=== PATIENT | female | born 1960 | race Caucasian/White ===

== ENCOUNTER → 2017-09-12 13:13 | Outpatient (CLI) | payer OTHER, SELFPAY ==
[2017-09-12 15:27] LABS: T4 Free Direct 1.09 ng/dL (0.76-1.46); Thyroid Stim Hormone (TSH) 0.07 uIU/mL (0.358-3.74)
[2017-09-18 11:28] LABS: Anti-Thyroglobulin AB 1.8 IU/mL (0.0-0.9); Thyroglobulin RIA < 2.0 ng/mL (.); Thyroid Peroxidase AB 47 IU/mL (0-34)
== END ==
PROVIDERS: Family Provider Family Medicine; PCP Family Medicine; Visit Provider Internal Medicine Endocrinology, Diabetes & Metabolism
DX: C73 Malignant neoplasm of thyroid gland (principal); E89.0 Postprocedural hypothyroidism; E55.9 Vitamin D deficiency, unspecified
CPT/HCPCS: 36415; 82306; 84432; 84439; 84443; 84481; 86376; 86800

== ENCOUNTER → 2017-09-19 14:10 | Outpatient (CLI) | payer OTHER, SELFPAY ==
[2017-09-26 10:22] LABS: HPV Reflexed? NOT INDICATED
== END ==
PROVIDERS: Family Provider Family Medicine; PCP Family Medicine; Visit Provider Family Medicine
DX: Z01.419 Encounter for gynecological examination (general) (routine) without abnormal findings (principal)
CPT/HCPCS: 88175; G0145

== ENCOUNTER → 2017-10-10 08:14 | Outpatient (CLI) | payer OTHER, SELFPAY ==
--- NOTE | 2017-10-10 08:16 | BI_ITS ---
MAMMOGRAPHY - BILATERAL SCREENING REASON FOR EXAM: Female, 57 years old. Routine annual screening examination. PERTINENT HISTORY: Mother with breast cancer. Aunt with breast cancer. Prior right stereotactic breast biopsy. TECHNIQUE: Digital bilateral breast all (3D mammographic acquisition) in the CC and MLO projections. 2-D mediolateral oblique (MLO) and craniocaudad (CC) views of both breasts were obtained. CAD: Full Field Digital Mammography with Computer Added Detection was performed. COMPARISON: Comparison is made with prior study dated September 20, 2016 and July 05, 2015. FINDINGS: Breast Composition: The breasts are heterogeneously dense, which may obscure small masses. There are no dominant masses or suspicious calcifications. No other significant abnormalities are identified. There has been no significant change since the prior study. BI/SCREENING MAMM (CAD), BILAT IMPRESSION: Stable bilateral screening mammogram. Yearly follow-up mammogram recommended. (A) ASSESSMENT CATEGORY: BIRADS Category 1: Negative. A letter regarding these results will be sent to the patient by the facility within 30 days. Approximately 10% of breast cancers are not detected by mammography. A normal mammogram should not delay biopsy of a clinically suspicious abnormality. [id number] Electronically Signed: Chriss Horan MD at 9:27 EDT Tel [phone], Service support ,
== END ==
PROVIDERS: Family Provider Family Medicine; PCP Family Medicine; Visit Provider Family Medicine
DX: Z12.31 Encounter for screening mammogram for malignant neoplasm of breast (principal)
CPT/HCPCS: 77063; 77067

== ENCOUNTER → 2018-01-08 08:35 | Outpatient (CLI) | payer OTHER, SELFPAY | PROVIDERS: Family Provider Family Medicine; PCP Family Medicine; Visit Provider Internal Medicine Endocrinology, Diabetes & Metabolism | DX: C73 Malignant neoplasm of thyroid gland (principal); R76.8 Other specified abnormal immunological findings in serum | CPT/HCPCS: 78018; A9528 ==

== ENCOUNTER → 2018-03-07 11:42 | Outpatient (CLI) | payer OTHER, SELFPAY ==
[2018-03-07 12:09] LABS: Absolute Lymphocyte Count 1.58 X10^3/ul (0.83-4.51); Absolute Neutrophil Count 3.8 X10^3/uL (2.0-7.7); Basophil# 0.05 X10^3/uL; Basophil% 0.8 % (0-1); Eosinophils% 3.3 % (0-5); Hematocrit 41.8 % (37-47); Hemoglobin 13.6 g/dl (12.0-15.0); Lymphocyte # 1.58 X10^3/ul (4.0); Lymphocyte % 26.4 % (19-41); Mean Corp Hgb Conc 32.5 g/gl (32-36); Mean Corpuscular Hgb 28.7 pg (27.0-32.0); Mean Corpuscular Volume 88.2 fL (81-99); Mean Platelet Vol. 9.7 fl (6.2-12.0); Monocyte# 0.31 X10^3/uL; Monocyte% 5.2 % (0-10); Neutrophil # 3.84 X10^3/uL (2.7-7.7); Neutrophil % 64.1 % (47-70); Platelet Count 303 K/mm3 (150-450); RBC Distribution Width CV 14.9 % (11.6-14.6); RBC Distribution Width SD 48.4 fl (35.1-43.9); Red Blood Count 4.74 M/mm3 (4.2-5.4)
[2018-03-07 12:10] LABS: POSITIVE COUNT NO; POSITIVE DIFFERENTIAL NO; POSITIVE MORPHOLOGY NO
[2018-03-07 12:52] LABS: AST(SGOT) 11 U/L (15-37); Alanine Aminotransfer ALT/SGPT 19 U/L (13-56); Albumin, Serum 3.7 g/dL (3.2-5.0); Alkaline Phosphatase 76 U/L (45-117); Anion Gap 8 (5-15); BUN 11 mg/dL (7-18); BUN/Creat Ratio 15.4 RATIO (10-20); Calcium,Total 8.5 mg/dL (8.5-10.1); Chloride 109 mmol/L (98-107); Creatinine, Serum 0.71 mg/dL (0.55-1.02); EST Glomerular Filtration Rate 89 mL/min (>60); Est Glom Filt Rate - Afr Amer 108 mL/min (>60); Free T3 3.2 pg/mL (2.18-3.98); Globulin 3.7 g/dL (2.2-4.2); Glucose 88 mg/dL (74-106); Potassium 4.1 mmol/L (3.5-5.1); Protein, Total 7.4 g/dL (6.4-8.2); Sodium Level 142 mmol/L (136-145); T4 Free Direct 1.16 ng/dL (0.76-1.46); Thyroid Stim Hormone (TSH) 0.29 uIU/mL (0.358-3.74)
[2018-03-11 12:22] LABS: Anti-Thyroglobulin AB < 1.0 IU/mL (0.0-0.9); Thyroglobulin, Serum Qt. < 0.1 ng/mL (1.5-38.5); Thyroid Peroxidase AB 38 IU/mL (0-34)
== END ==
PROVIDERS: Family Provider Family Medicine; PCP Family Medicine; Referring Provider Internal Medicine Endocrinology, Diabetes & Metabolism; Visit Provider Internal Medicine Endocrinology, Diabetes & Metabolism
DX: C73 Malignant neoplasm of thyroid gland (principal)
CPT/HCPCS: 36415; 80053; 84432; 84439; 84443; 84481; 85025; 86376; 86800

== ENCOUNTER → 2018-08-22 15:00 | Outpatient (CLI) | payer OTHER, SELFPAY ==
[2018-05-16 10:32] VITALS: BMI 24.1
[2018-08-22 17:00] LABS: Vitamin D,25 Hydroxy 48.2 ng/mL (29.95-100.01)
[2018-08-22 17:01] LABS: ALB/GLOB Ratio 1.1 RATIO (0.9-2.4); AST(SGOT) 16 U/L (15-37); Alanine Aminotransfer ALT/SGPT 27 U/L (13-56); Alkaline Phosphatase 74 U/L (45-117); Anion Gap 10 (5-15); BUN 14 mg/dL (7-18); BUN/Creat Ratio 18.6 RATIO (10-20); Calcium,Total 8.7 mg/dL (8.5-10.1); Chloride 107 mmol/L (98-107); Creatinine, Serum 0.75 mg/dL (0.55-1.02); EST Glomerular Filtration Rate 84 mL/min (>60); Est Glom Filt Rate - Afr Amer 101 mL/min (>60); Free T3 2.7 pg/mL (2.18-3.98); Globulin 3.5 g/dL (2.2-4.2); Glucose 92 mg/dL (74-106); Potassium 3.7 mmol/L (3.5-5.1); Protein, Total 7.5 g/dL (6.4-8.2); Sodium Level 143 mmol/L (136-145); T4 Free Direct 1.03 ng/dL (0.76-1.46); Thyroid Stim Hormone (TSH) 1.85 uIU/mL (0.358-3.74)
== END ==
PROVIDERS: Family Provider Family Medicine; PCP Family Medicine; Referring Provider Internal Medicine Endocrinology, Diabetes & Metabolism; Visit Provider Internal Medicine Endocrinology, Diabetes & Metabolism
DX: E89.0 Postprocedural hypothyroidism (principal); E55.9 Vitamin D deficiency, unspecified
CPT/HCPCS: 36415; 80053; 82306; 84439; 84443; 84481

== ENCOUNTER → 2018-10-16 10:18 | Outpatient (CLI) | payer OTHER, SELFPAY ==
[2018-10-16 09:27] VITALS: BMI 24.1
[2018-10-21 09:38] LABS: HPV Reflexed? NOT INDICATED
== END ==
PROVIDERS: Family Provider Family Medicine; PCP Family Medicine; Visit Provider Family Medicine
DX: Z01.419 Encounter for gynecological examination (general) (routine) without abnormal findings (principal)
CPT/HCPCS: 88175; G0145

== ENCOUNTER → 2018-11-04 15:18 | Outpatient (CLI) | payer OTHER, SELFPAY ==
[2018-10-16 09:27] VITALS: BMI 24.1
--- NOTE | 2018-11-04 15:21 | BI_ITS ---
MAMMOGRAPHY - BILATERAL SCREENING REASON FOR EXAM: Female, 58 years old. Routine annual screening examination. PERTINENT HISTORY: Mother with breast cancer. Aunt with breast cancer. Remote right stereotactic breast biopsy. TECHNIQUE: Digital bilateral breast kelvin (3D mammographic acquisition) in the CC and MLO projections. 2-D mediolateral oblique (MLO) and craniocaudad (CC) views of both breasts were obtained. CAD: Full Field Digital Mammography with Computer Added Detection was performed. COMPARISON: Comparison is made with prior examination October 10, 2017 and September 20, 2016. FINDINGS: Breast Composition: The breasts are heterogeneously dense, which may obscure small masses. There is a 1.4 cm well-defined nodular density in the slightly upper central portion of the left breast. Correlation with ultrasound is recommended. Small bilateral benign appearing axillary. No other significant abnormalities are identified. BI/SCREEN MAMM (CAD) W/KELVIN BILAT IMPRESSION: 1.4 cm well-defined nodular density in the slightly upper central portion of the left breast as described. Correlation with ultrasound is recommended. ASSESSMENT CATEGORY: BIRADS Category 0: Incomplete. Need additional imaging evaluation. A letter regarding these results will be sent to the patient by the facility within 30 days. Approximately 10% of breast cancers are not detected by mammography. A normal mammogram should not delay biopsy of a clinically suspicious abnormality. [id number] Electronically Signed: Chriss Horan, at 8:59 EDT , Service support ,
== END ==
PROVIDERS: PCP Family Medicine; Referring Provider Family Medicine; Visit Provider Family Medicine
DX: Z12.31 Encounter for screening mammogram for malignant neoplasm of breast (principal); Z80.3 Family history of malignant neoplasm of breast
CPT/HCPCS: 77063; 77067

== ENCOUNTER → 2018-11-06 09:31 | Outpatient (CLI) | payer OTHER, SELFPAY ==
[2018-10-16 09:27] VITALS: BMI 24.1
--- NOTE | 2018-11-06 09:34 | US_ITS ---
STUDY: ULTRASOUND BREAST - LEFT REASON FOR EXAM: Female, 58 years old. Abnormal screening mammogram. TECHNIQUE: Axial and longitudinal images of the LEFT breast were performed with a high resolution ultrasound transducer. COMPARISON: Comparison is made with prior mammogram dated November 04, 2018. FINDINGS: LEFT Breast: The mammographic abnormality corresponds to a 1.1 cm x 1.1 cm x 0.7 cm hypoechoic well-defined nodule at the 12:00 position of the breast at 1 cm from the nipple. This is not a typical cyst. A biopsy is recommended for further evaluation. US/Breast Limited Unilateral IMPRESSION: 1.1 cm x 1.1 cm x 0.7 cm well-defined hypoechoic nodule at the 12:00 position in the breast and one centimeters from nipple. A biopsy recommended. ASSESSMENT CATEGORY: BIRADS Category 4: Suspicious - Biopsy Should Be Considered. A letter regarding these results will be sent to the patient by the facility within 30 days. Electronically Signed: Chriss Horan, at 14:48 EDT , Service support ,
== END ==
PROVIDERS: Family Provider Family Medicine; PCP Family Medicine; Visit Provider Family Medicine
DX: R92.8 Other abnormal and inconclusive findings on diagnostic imaging of breast (principal)
CPT/HCPCS: 76642

== ENCOUNTER 2018-11-12 21:55 | Observation (INO) | payer OTHER, SELFPAY ==
[2018-11-12 13:18] VITALS: BMI 24.1
[2018-11-12 21:57] VITALS: BP 110/73; PULSE 89; RESP 18; TEMP 37; O2SAT 99; BMI 24.5
[2018-11-12 22:38] LABS: Red Blood Cells-Urine 0 SEEN /hpf (0-5)
--- NOTE | 2018-11-12 22:38 | ED.DCSUM_ITS ---
- ER Visit Summary Date of Service: 11/12/18 Chief Complaint: Abdominal pain History of Present Illness: The patient is a 58 F who presents the emergency department with a 1 day history of right lower quadrant pain. Patient states that she woke this morning with an ache in her side. The day went on she de veloped nausea and the pain seemed to more localized in the right lower quadrant and more painful. She notes pain with walking and with the car ride. She was actually at Dr. Del Real's office today for scheduling biopsy for an abnormal mammogram. She did not mention anything about this at that time. Patient notes she had a temperature of around 100 this evening. She has not thrown up. No ur inary symptoms or change in stool. Patient last had crackers around 1300 hrs. had a couple sips of tea this afternoon. Patient had a colonoscopy (Dr Keith) approximately 2 years ago that had a polyp that was benign. She has had a prior thyroidectomy (Dr Wilde). Physical Examination: Afebrile vital signs are stable Gen: Well-nourished well-developed Head: Normocephalic atraumatic Eyes: Perrl EOMI ENT: TMs clear no rhinorrhea moist mucous membranes Neck: Supple no lymphadenopathy no JVD nontender CVS: Regular rate rhythm no murmurs normal S1-S2 Respiratory: No distress clear to auscultation bilaterally chest nontender Abdomen: Soft there is tenderness and guarding in the right lower quadrant. No rebound tenderness. Back: Nontender Extremity: Nontender no edema Skin: Normal color no rash Neuro: alert orientated ?3 CN II-XII intact normal strength sensation reflexes gait cerebellar Psych: Normal affect normal mood Emergency Department Course and Treatment: CBC and abdominal labs were obtained. White count is elevated at 14.3. urinalysis obtained and negative. CT the abdomen pelvis was ordered. Patient received IV fluids morphine and Zofran. Care of the patient will be turned over to the night physician for check of CT and final disposition. Impression: 1. Acute abdominal pain This note was generated with [employer] dictation software. It may contain incorrect words, spelling, and punctuation that were not noted in review of the chart prior to signing ED Disposition - Plan for ED Patient: Referrals: Michael Baer, [Primary Care Provider] -
[2018-11-12 22:40] LABS: Color, Urine Yellow (Yellow); Glucose, Dipstick Normal (Normal); Ketone-Dipstick 5 mg/dl (Negative); Leukocyte Esterase-Dipstick Negative /ul (Negative); Nitrite-Dipstick Negative (Negative); Occult Blood-Urine Negative /ul (Negative); Protein-Dipstick Negative (Negative); Urine Bilirubin Dipstick Negative (Negative); Urine Clarity Clear (Clear); Urine Urobilinogen Normal (Normal)
[2018-11-12] MEDS: Ondansetron 4 MG/2 ML Vial IV (22:45)
[2018-11-12] MEDS: Morphine 4 MG/ML Syringe IV (22:45)
[2018-11-12] MEDS: 0.9% Normal Saline 1,000 ML 125 ML IV (22:46)
[2018-11-12 23:00] LABS: Bacteria 1+ /hpf (None Seen); Mucous, Urine RARE /hpf (<or=2+); Squamous Epithelial Cells - UA 5-10 SEEN /hpf (5-10); White Blood Cells 0-5 SEEN /hpf (0-5)
[2018-11-12 23:01] LABS: Absolute Lymphocyte Count 1.25 X10^3/ul (0.83-4.51); Absolute Neutrophil Count 12.3 X10^3/uL (2.0-7.7); Basophil# 0.03 X10^3/uL; Basophil% 0.2 % (0-1); Eosinophil# 0.02 X10^3/uL; Eosinophils% 0.1 % (0-5); Hematocrit 40.2 % (37-47); Hemoglobin 13.3 g/dl (12.0-15.0); Lymphocyte # 1.25 X10^3/ul (4.0); Lymphocyte % 8.7 % (19-41); Mean Corp Hgb Conc 33.1 g/gl (32-36); Mean Corpuscular Hgb 29.2 pg (27.0-32.0); Mean Corpuscular Volume 88.2 fL (81-99); Mean Platelet Vol. 9.4 fl (6.2-12.0); Monocyte# 0.64 X10^3/uL; Monocyte% 4.5 % (0-10); Neutrophil # 12.34 X10^3/uL (2.7-7.7); Neutrophil % 86.2 % (47-70); Platelet Count 290 K/mm3 (150-450); RBC Distribution Width CV 14.6 % (11.6-14.6); RBC Distribution Width SD 47.3 fl (35.1-43.9); Red Blood Count 4.56 M/mm3 (4.2-5.4); White Blood Count 14.3 K/mm3 (4.4-11.0)
[2018-11-12 23:02] LABS: POSITIVE COUNT NO; POSITIVE DIFFERENTIAL NO; POSITIVE MORPHOLOGY NO
[2018-11-12 23:18] LABS: AST(SGOT) 16 U/L (15-37); Alanine Aminotransfer ALT/SGPT 16 U/L (13-56); Albumin, Serum 3.8 g/dL (3.2-5.0); Alkaline Phosphatase 73 U/L (45-117); Anion Gap 6 (5-15); BUN 11 mg/dL (7-18); BUN/Creat Ratio 15.1 RATIO (10-20); Bilirubin, Direct 0.09 mg/dL (0.00-0.30); Calcium,Total 8.7 mg/dL (8.5-10.1); Chloride 109 mmol/L (98-107); Creatinine, Serum 0.73 mg/dL (0.55-1.02); EST Glomerular Filtration Rate 87 mL/min (>60); Est Glom Filt Rate - Afr Amer 105 mL/min (>60); Estimated Creatinine Clearance 74.67 ml/min; Globulin 3.7 g/dL (2.2-4.2); Glucose 109 mg/dL (74-106); Lipase 40 U/L (73-393); Potassium 4.5 mmol/L (3.5-5.1); Protein, Total 7.5 g/dL (6.4-8.2); Sodium Level 137 mmol/L (136-145)
[2018-11-13] VITALS (9 sets, daily range): BP systolic 104–128; BP diastolic 55–77; PULSE 74–94; RESP 14–18; TEMP 36.4–37.2; O2SAT 94–97; BMI 24.5
--- NOTE | 2018-11-13 01:53 | PCM.HP.STD ---
Problem List (1) Acute appendicitis Status: Acute Qualifiers: Acute appendicitis type: with localized peritonitis Appendicitis perforation presence: without perforation Appendicitis abscess presence: without abscess History of Present Illness Date of Admission: 11/13/18 The patient is a 58 year old F who presents with a 1 day history of right lower quadrant abdominal pain. The patient had pain starting in the right mid abdomen lower quadrant at approximately 9:00 this morning. It is of note that for a separate issue she was seen in the office today by Dr. Calhoun but despite the fact that she was having abdominal pain at that time she made no comment of it. Because of again worsened she presented to the emergency room at 10:00 last night. I was notified at approximately 130 this morning. White count is elevated at 14,000. CT scan demonstrates a severe acute appendicitis with local inflammatory changes. She has not had any previous abdominal surgery. I have assisted her in the past with thyroid surgery for benign disease. Past Medical History Past Medical History (Chronic Problems): Chronic Problems (Last Reviewed 11/12/18 @ 13:16 by Jerica Calvin) Polyp of cervix (Chronic) Hypothyroidism (Chronic) Medical History: Medical History (Last Reviewed 11/12/18 @ 13:16 by Jerica Calvin) Hypothyroidism (Chronic) E03.9 History of thyroid cancer (Acute) Z85.850 Allergies adhesive Allergy (Verified 11/12/18 21:56) Rash FROM BANDAID Home Medications: Ambulatory Orders Medication Instructions Recorded levothyroxine 100 mcg capsule 100 mcg PO SUTUTHFRSA 09/19/17 liothyronine 5 mcg tablet 5 mcg PO DAILY 10/16/18 Surgical History: Surgical History (Last Updated 11/12/18 @ 13:16 by Jerica Calvni) History of colonoscopy Onset Date: ~2016 Z98.890 History of right breast biopsy Z98.890 History of thyroidectomy E89.0 2017 Status post biopsy of thyroid gland Z98.890 Smoking Status: Never smoker Review of Systems Constitutional: Reports: Anorexia, Fever HEENT: Denies: Difficulty Swallowing Cardiovascular: Denies: Chest Pain Respiratory: Denies: Cough Gastrointestinal: Reports: Abdominal Pain, Nausea Endocrine: Denies: Change in Body Habitus VTE Information - Inpt Only VTE Present on Admission: No Patient Problems: Active and Suspected Problems (Last Reviewed 11/12/18 @ 13:16 by Jerica Calvin) Acute appendicitis (Acute) - Physical Exam General: Alert, Oriented x3, Cooperative, No apparent distress HEENT: Atraumatic Oral: Moist Mucosa Neck: Supple Lungs: Clear to auscultation, Normal air movement Cardiovascular: Regular rate, Regular Rhythm Abdomen: Soft, - - Tender right lower quadrant with diffuse guarding and diffuse fullness. Very infrequent bowel sounds Extremities: No Calf Tenderness Skin: No rashes Psych/Mental Status: Appropriate Vital Signs Temp Pulse Resp BP Pulse Ox 98.5 F 81 17 124/70 H 97 11/13/18 01:31 11/13/18 01:31 11/13/18 01:31 11/13/18 01:31 11/13/18 01:31 Oxygen Delivery Method Room Air Weight: 147 lb 0.773 oz Body Mass Index (BMI) 24.5 Laboratory Tests Past 24 Hrs 11/12/18 11/12/18 11/12/18 22:15 22:49 22:49 WBC 14.3 H RBC 4.56 Hgb 13.3 Hct 40.2 MCV 88.2 MCH 29.2 MCHC 33.1 RDW 14.6 RDW Differential 47.3 H Plt Count 290 MPV 9.4 Immature Gran % (Auto) 0.300 Neut % (Auto) 86.2 H Lymph % (Auto) 8.7 L [place] % (Auto) 4.5 Eos % (Auto) 0.1 Baso % (Auto) 0.2 Absolute Neuts (auto) 12.3 H Absolute Lymphs (auto) 1.25 Total Counted Not Reportable Sodium 137 Potassium 4.5 Chloride 109 H Carbon Dioxide 22.0 Anion Gap 6 BUN 11 Creatinine 0.73 Estim Creat Clear Calc 74.67 Est GFR (MDRD) Af Amer 105 Est GFR (MDRD) Non-Af 87 BUN/Creatinine Ratio 15.1 Glucose 109 H Calcium 8.7 Total Bilirubin 0.50 Direct Bilirubin 0.09 AST 16 ALT 16 Alkaline Phosphatase 73 Total Protein 7.5 Albumin 3.8 Globulin 3.7 Lipase 40 L Urine Color Yellow Urine Clarity Clear Urine pH 8.0 Ur Specific [place] 1.010 Urine Protein Negative Urine Glucose (UA) Normal Urine Ketones 5 H Urine Occult Blood Negative Urine Nitrite Negative Urine Bilirubin Negative Urine Urobilinogen Normal Ur Leukocyte Esterase Negative Urine RBC 0 SEEN Urine WBC 0-5 SEEN Ur Squamous Epith Cells 5-10 SEEN Urine Bacteria 1+ Urine Mucus RARE Assessment/Plan All Active Problems (Last Reviewed 11/12/18 @ 13:16 by Jerica Calvin) Acute appendicitis (Acute) History of thyroid cancer (Acute) Screening for colon cancer (Acute) I have personally reviewed her CT scan. Findings are consistent with acute focal localized appendicitis with significant periappendiceal inflammatory changes. I recommend a laparoscopic appendectomy in detail I have discussed the technique, benefits, risks, alternatives. I have recommend initiating IV antibiotics and proceeding with definitive surgery. She has had an opportunity to ask and have questions answered. We will proceed at this time because of the severity of the process. Rajeev Wilde M.D., F.A.C.S.
--- NOTE | 2018-11-13 01:58 | DCINST_ITS ---
<Rajeev Wilde - Last Filed: 11/13/18 01:58> Discharge Diet: Light diet - advance as tolerated - if you have questions about your diet instructions, please talk to you doctor. Discharge Activity: May Not Drive - for 3-5 days or while taking narcotic pain medicine. May shower in (days): 1 Lifting Restrictions: 10 pounds Call your doctor if your incision/area has: Continuous Slow Oozing, Sudden Increased Bleeding, Increased Pain/ Swelling, Increased Redness, Foul Smelling Discharge Call your doctor if you observe: Fever of 101 or Higher Suture Line Care: Avoid Pulling/Pushing, Avoid Pinching/Bending Additional Dressing/Incision Instructions:: Change or remove dressing in 4 days. Leave steri-strips in place for 1 week. Allergies/Adverse Reactions: Allergies adhesive Allergy (Verified 11/12/18 21:56) Rash FROM BANDAID Medications to take at Discharge levothyroxine 100 mcg capsule 100 mcg PO SUTUTHFRSA 09/19/17 liothyronine 5 mcg tablet 5 mcg PO DAILY 10/16/18 Hydrocodone Bitart/Apap 5-325 [[place] 5MG-325MG] 1 tab PO Q6H PRN PRN 2 Days #4 tab 11/13/18 The following prescriptions were given: Hydrocodone Bitart/Apap 5-325 [[place] 5MG-325MG] 1 tab PO Q6H PRN PRN 2 Days #4 tab PRN Reason: Pain Transmission Status: Received by [id number] Primary Care Physician: Michael Baer DO [Primary Care Provider] - Test Results: Test results from this visit will be discussed in further detail at your follow- up appointment, if applicable. Please Follow Up With: Rajeev Wilde MD - [phone] When: Call to make an appointment to be seen in about 10 days. <Mirta Chew - Last Filed: 11/13/18 14:30> Test Results: Test results from this visit will be discussed in further detail at your follow- up appointment, if applicable. Proposed Discharge Date: 11/13/18
--- NOTE | 2018-11-13 02:30 | APP_PTH ---
PATIENT: LUCÍA AGUERO LOC: MS3 U#:[id number] AGE/SX: 58/F ROOM: MS321 RE11/13/[address]: Dr. Rajeev Wilde MD : 1960 BED: 1 DIS: 11/13/2018 SPEC #: [id number] RECD: 11/13/18 14:32 STATUS: MIKEL REEj #: [id number] SHERYL: 11/13/18 02:[address]: Rajeev Wilde DEPT: SURGICAL PATHOLOGY RECD BY: Sameera Roper ENTERED: 11/14/18 08:39 SP TYPE: APPENDIX OTHR DR: Dr. Michael Baer, DO Tissues: Appendix, NOS Procedures: Surgery Specimen Level III HEADER OPERATION: Laparoscopic appendectomy PRE-OP DIAGNOSIS: Acute appendicitis TISSUE SUBMITTED: Appendix MICROSCOPIC DIAGNOSIS Appendix: Acute appendicitis and periappendicitis. DILIP:wily 11/17/18 MICROSCOPIC DESCRIPTION Slides are reviewed. GROSS DESCRIPTION Received in fixative is one container labeled with the patient's name and designated appendix. The specimen consists of a vermiform appendix measuring 9 cm in length and varying in diameter from 1 to 1.8 cm. The serosal surface of the appendix is kaur-brown with extensive fibrous adhesion. Grossly, no perforation is identified. The appendix is serially cross-sectioned to reveal a patent lumen containing soft brown stool. The appendiceal wall is slightly thickened but uniform (0.25 cm). Header Machine Operator sections are submitted in one cassette. / CE:wily 11/14/18 TC:2 CPT: 59692
[2018-11-13] MEDS: Bupivacaine Mpf 0.5% 30 ML VIAL (03:06)
--- NOTE | 2018-11-13 04:05 | OP.PCM_ITS ---
Problem List (1) Acute appendicitis Status: Acute Qualifiers: Acute appendicitis type: with localized peritonitis Appendicitis perforation presence: without perforation Appendicitis abscess presence: without abscess Report of Operation Date of Procedure: 11/13/18 Pre-Operative Diagnosis: Acute appendicitis with localized peritonitis Post-Operative Diagnosis: Same Surgery/Procedure Performed:: Laparoscopic appendectomy Description of Surgical Findings:: Timeout and informed consent was obtained. 58-year-old female was taken the operating room. She received initiation of Zosyn as an IV antibiotic via the emergency room. She underwent general endotracheal intubation and anesthesia. The abdomen was sterilely prepped and draped. 0.5% Marcaine was used as a local anesthetic. Throughout the procedure a total of 30 cc was used. Skin sites were anesthetized. A vertical infraumbilical incision was created holding sutures of 0 Vicryl placed varies needle inserted and the abdomen was insufflated with CO2 to a pressure of 10 mmHg pressure. Vanesa trocar inserted. Terminal endoscope inserted. No evidence of acute trocar problems. 5-minute trochars were placed in the suprapubic and low mid abdomen. Inspection revealed the appendix was not immediately visible. On careful blunt dissection was apparent that the appendix was immediately adherent to the ascending colon and adherent to the right pelvic sidewall. At this point tedious dissection was performed as severe acute localized inflammation was encountered. Using blunt dissection aqua dissection aspiration finally was able to clearly identify the tip the appendix. Retroperitoneum had to be incised to elevated. Was able to get around the base the appendix placed a 45 mm standard height stapler and secured the appendix there. I then used a vascular stapler to secure the majority of the mesoappendix. I further used Hem-o-rosemary clips to secure hemostasis. The appendix was eventually released in place a retrieval bag. Because the patient is a Sikhism very careful inspection of the resection area was performed as there was significant focal acute inflammatory changes. Additional hemo-lock clips were placed as appropriate. The right pericecal area was irrigated and aspirated free. There was no evidence of any leakage. Hemostasis was completely achieved. The appendix had been placed in a retrieval bag was exited at the umbilicus. The remaining trochars removed under visualization. The abdomen was allowed to deflate of the CO2. The fascia at the umbilicus was approximated with interrupted 0 Vicryl [id number] suture. Skin edges were approximated with interrupted 4-0 Monocryl subdermal stitches. Steri-Strips Telfa and OpSite dressings applied. Sponge and instrument and needle counts were reported to the surgeon to be correct. Blood loss was minimal. She was taken to the recovery area in satisfactory condition. Specimen appendix. Drains none. Blood loss minimal. Because the patient is a Sikhism and there is risk of bleeding I will not initiate pharmacologic DVT prophylaxis but will utilize early mobilization and sequential venous compression devices. Rajeev Wilde M.D., F.A.C.S. Type of Anesthesia:: General Anesthesiologist: Danny Eller
--- NOTE | 2018-11-13 06:10 | PN.SURG_ITS ---
Patient Problems: Active and Suspected Problems (Last Reviewed 11/12/18 @ 13:16 by Jerica Calvin) Acute appendicitis (Acute) Subjective: Pt feeling OK. Just awake from surgery - Physical Exam Abdomen: Soft, Bowel Sounds Not Present Vital Signs Temp Pulse Resp BP Pulse Ox 97.6 F L 76 16 113/55 L 96 11/13/18 05:01 11/13/18 05:01 11/13/18 05:01 11/13/18 05:01 11/13/18 05:01 Oxygen Delivery Method Room Air Weight: 147 lb 0.773 oz Body Mass Index (BMI) 24.5 Intake and Output for Last 24 Hours 11/11/18 11/12/18 11/13/18 23:59 23:59 23:59 Intake Total 1899 Balance 1899 Laboratory Tests Past 24 Hrs 11/12/18 11/12/18 11/12/18 22:15 22:49 22:49 WBC 14.3 H RBC 4.56 Hgb 13.3 Hct 40.2 MCV 88.2 MCH 29.2 MCHC 33.1 RDW 14.6 RDW Differential 47.3 H Plt Count 290 MPV 9.4 Immature Gran % (Auto) 0.300 Neut % (Auto) 86.2 H Lymph % (Auto) 8.7 L [place] % (Auto) 4.5 Eos % (Auto) 0.1 Baso % (Auto) 0.2 Absolute Neuts (auto) 12.3 H Absolute Lymphs (auto) 1.25 Total Counted Not Reportable Sodium 137 Potassium 4.5 Chloride 109 H Carbon Dioxide 22.0 Anion Gap 6 BUN 11 Creatinine 0.73 Estim Creat Clear Calc 74.67 Est GFR (MDRD) Af Amer 105 Est GFR (MDRD) Non-Af 87 BUN/Creatinine Ratio 15.1 Glucose 109 H Calcium 8.7 Total Bilirubin 0.50 Direct Bilirubin 0.09 AST 16 ALT 16 Alkaline Phosphatase 73 Total Protein 7.5 Albumin 3.8 Globulin 3.7 Lipase 40 L Urine Color Yellow Urine Clarity Clear Urine pH 8.0 Ur Specific [place] 1.010 Urine Protein Negative Urine Glucose (UA) Normal Urine Ketones 5 H Urine Occult Blood Negative Urine Nitrite Negative Urine Bilirubin Negative Urine Urobilinogen Normal Ur Leukocyte Esterase Negative Urine RBC 0 SEEN Urine WBC 0-5 SEEN Ur Squamous Epith Cells 5-10 SEEN Urine Bacteria 1+ Urine Mucus RARE Medical Necessity - Tobacco Use Smoking Status: Never smoker Assessment/Plan All Active Problems (Last Reviewed 11/12/18 @ 13:16 by Jerica Calvin) Acute appendicitis (Acute) History of thyroid cancer (Acute) Screening for colon cancer (Acute) Mobilize pt Re assess later today
[2018-11-13] MEDS: Lactated Ringers 1,000 ML 30 ML IV (07:17)
[2018-11-13] MEDS: Morphine 2 MG/ML Syringe IV (07:18)
[2018-11-13] MEDS: 0.9% NaCl Peripheral Flush Adult/Peds IV (07:23)
[2018-11-13] MEDS: Levothyroxine 100 MCG Tablet PO (07:48)
[2018-11-13] MEDS: HYDROcodone Bitartrate/Apap 5/325 Tablet PO (11:23)
--- NOTE | 2018-11-13 22:16 | CT_ITS ---
HISTORY: RLQ PAIN WITH FEVER, NAUSEA, CHILLS SINCE THIS AM, HX THYROID CA IN PAST EXAMINATION: CT Abdomen And Pelvis W/ Contrast TECHNIQUE: Helically acquired images were obtained of the abdomen and pelvis following IV contrast. A radiation dose optimization technique was used for this scan. IV Contrast dosage and agent: 100ML Isovue 370 Oral contrast: Yes COMPARISON: 02/01/2017 FINDINGS: Appendix: Right lower quadrant appendix which is dilated measuring 11 mm in diameter with enhancement of its wall and accompanied by inflammatory edema and small fluid component within the right paracolic gutter. Appendicitis clearly present with possible early rupture. No abscess or periappendiceal soft tissue gas seen. Lower thorax: Bibasilar mild dependent atelectasis. No pleural effusion. Prominent gallbladder distention without gallstones or pericholecystic inflammatory change. No biliary dilatation. Liver is normal in size. The subdiaphragmatic posterior segment of the right hepatic lobe shows a stable circumscribed 2.1 cm cyst. No suspicious hepatic lesion. Normal spleen and pancreas. Both kidneys are normal in position. Left renal developmental UPJ narrowing with mild hydronephrosis and prominent distention of the left renal pelvis. No postobstructive renal atrophy is seen. The pattern appears stable. The left ureter is nondilated and fills with contrast on delayed imaging. The right kidney shows additional mild pelviectasis without bruno hydronephrosis. The right ureter fills with contrast on delayed imaging. No pyelonephritis or suspicious renal lesion. Adrenal glands are not enlarged. Abdominal aorta is normal in caliber. Patent IVC. No retroperitoneal lymph node enlargement. GI tract: Acute appendicitis, as above. No bowel obstruction. No pneumoperitoneum. Pelvis: Enlarged, fibroid uterus. Left ovary is not enlarged and shows numerous coarse calcifications of varying size. Possible ovarian dermoid. Tiny free fluid within the posterior cul-de-sac on the right. Normal urinary bladder. Bones: No acute osseous abnormality. CT/Abdomen/Pelvis WITH Contrast IMPRESSION: 1. Acute appendicitis with possible early appendiceal rupture. Small fluid component within the right paracolic gutter. No abscess or pneumoperitoneum. No bowel obstruction. 2. 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 Additional mild pelviectasis of the right kidney without bruno hydronephrosis on the right. If needed, further assessment of renal function could be obtained with diuretic nuclear renal scan. 3. Enlarged, fibroid uterus. 4. Left ovarian coarse calcifications, possible small dermoid tumor. Individualized dose optimization techniques were used for this CT. at 0201 Reported and signed by: Nikita Light MD N.B. : The above information has been verbally conveyed by Nikita Light to Dr. Suni MD, on 11/13/2018 02:35:56 (ET). Electronically Signed: Nikita Light, at 2:00 EDT Tel , Service support ,
== END 2018-11-13 14:50 | disposition home or self-care (01) ==
LOC: ED 22:24 → SDC 11-13 02:36 → MS3 11-13 02:37 → SDC 11-13 04:21 → MS3 11-13 04:21
PROVIDERS: Admitting Provider Surgery; Emergency Provider Emergency Medicine; Family Provider Family Medicine; PCP Family Medicine; Referring Provider Surgery; Visit Provider Surgery
PROC: 0DTJ4ZZ Resection of Appendix, Percutaneous Endoscopic Approach (ICD-10-PCS; CPT 44970; principal; 2018-11-13 02:30)
DX: K35.80 Unspecified acute appendicitis (principal); E03.9 Hypothyroidism, unspecified; Z79.899 Other long term (current) drug therapy; Z85.850 Personal history of malignant neoplasm of thyroid
CPT/HCPCS: 44970; 74177; 80048; 80076; 81001; 83690; 85025; 88304; 96361; 96365; 96375; 96376; 99218; 99285; J7030; J7120; Q9967; A4216; G0378; J2405

== ENCOUNTER → 2018-11-14 16:21 | Outpatient (CLI) | payer OTHER, SELFPAY ==
--- NOTE | 2018-11-14 | BRBX_PTH ---
PATIENT: LUCÍA AGUERO LOC: [facility] U#:[id number] AGE/SX: 64/F ROOM: RE11/14/[address]: Dr. Nani Calhoun MD : 1960 BED: DIS: SPEC #: [id number] RECD: 11/14/18 16:17 STATUS: MIKEL REEj #: [id number] SHERYL: 11/14/18 00:[address]: Nani Calhoun DEPT: SURGICAL PATHOLOGY RECD BY: Issac Boyce ENTERED: 11/17/18 10:55 SP TYPE: BREAST BX OTHR DR: Dr. Michael Baer DO Tissues: Left breast, NOS Procedures: Surgery Specimen Level IV HEADER OPERATION: Left breast biopsy PRE-OP DIAGNOSIS: Left breast mass TISSUE SUBMITTED: Left breast tissue ISCHEMIC TIME: 1 minute FIXATION TIME: 77 hours MICROSCOPIC DIAGNOSIS Left breast tissue, core biopsy: Fragments of benign breast tissue with extensive dense fibrosis. Focal microcalcifications. Negative for atypia or malignancy. DILIP:wily 11/18/18 COMMENT Correlation with clinical, radiologic findings and appropriate follow up are necessary. MICROSCOPIC DESCRIPTION Slides are reviewed. GROSS DESCRIPTION Received in fixative is one container labeled with the patient's name and designated left breast. The specimen consists of multiple elongated fragments of kaur-yellow fibroadipose tissue that in aggregate measure 2.5 x 0.5 x 0.1 cm. The entire specimen is submitted in one cassette. / DILIP:wily 11/17/18 TC:5 CPT: 60755
[2018-11-14 14:13] VITALS: BMI 24.5
== END ==
PROVIDERS: Family Provider Family Medicine; PCP Family Medicine; Referring Provider Surgery; Visit Provider Surgery
DX: N63.20 Unspecified lump in the left breast, unspecified quadrant (principal)
CPT/HCPCS: 88305

== ENCOUNTER → 2019-02-18 12:45 | Outpatient (CLI) | payer OTHER, SELFPAY ==
[2018-11-17 13:01] VITALS: BMI 24.5
--- NOTE | 2019-02-18 12:47 | US_ITS ---
STUDY: ULTRASOUND BREAST - LEFT REASON FOR EXAM: Female, 58 years old. Follow-up for prior biopsy of the left breast nodule. TECHNIQUE: Axial and longitudinal images of the LEFT breast were performed with a high resolution ultrasound transducer. COMPARISON: Comparison is made with prior study dated November 06, 2018. FINDINGS: LEFT Breast: Once again, there is a 1.1 cm x 1.2 cm x 0.7 cm hypoechoic solid nodule at the 12:00 position the breast at 1 cm from nipple. This was previously biopsied. A clip is seen within it. US/Breast Limited Unilateral IMPRESSION: Stable appearance of the hypoechoic solid nodule at the 12:00 position breast at 1 cm from nipple. A tissue clip marker is seen within. ASSESSMENT CATEGORY: BIRADS Category 2: Benign. A letter regarding these results will be sent to the patient by the facility within 30 days. Electronically Signed: Chriss Horan, at 10:59 EDT , Service support ,
== END ==
PROVIDERS: Family Provider Family Medicine; PCP Family Medicine; Referring Provider Surgery; Visit Provider Surgery
DX: N60.32 Fibrosclerosis of left breast (principal)
CPT/HCPCS: 76642

== ENCOUNTER → 2019-03-12 12:50 | Outpatient (CLI) | payer OTHER, SELFPAY ==
[2019-02-20 08:36] VITALS: BMI 24.5
[2019-03-12 14:07] LABS: Vitamin D,25 Hydroxy 39.9 ng/mL (29.95-100.01)
[2019-03-12 14:08] LABS: AST(SGOT) 15 U/L (15-37); Alanine Aminotransfer ALT/SGPT 21 U/L (13-56); Albumin, Serum 4.1 g/dL (3.2-5.0); Alkaline Phosphatase 77 U/L (45-117); Anion Gap 7 (5-15); BUN 6 mg/dL (7-18); BUN/Creat Ratio 8.5 RATIO (10-20); Chloride 106 mmol/L (98-107); EST Glomerular Filtration Rate 90 mL/min (>60); Est Glom Filt Rate - Afr Amer 109 mL/min (>60); Free T3 2.8 pg/mL (2.18-3.98); Glucose 87 mg/dL (74-106); Potassium 3.6 mmol/L (3.5-5.1); Protein, Total 8.1 g/dL (6.4-8.2); Sodium Level 141 mmol/L (136-145); T4 Free Direct 0.86 ng/dL (0.76-1.46); Thyroid Stim Hormone (TSH) 9.37 uIU/mL (0.358-3.74)
[2019-03-16 13:23] LABS: Anti-Thyroglobulin AB < 1.0 IU/mL (0.0-0.9); Thyroglobulin, Serum Qt. < 0.1 ng/mL (1.5-38.5); Thyroid Peroxidase AB 32 IU/mL (0-34)
== END ==
PROVIDERS: Family Provider Family Medicine; PCP Family Medicine; Referring Provider Internal Medicine Endocrinology, Diabetes & Metabolism; Visit Provider Internal Medicine Endocrinology, Diabetes & Metabolism
DX: C73 Malignant neoplasm of thyroid gland (principal); E89.0 Postprocedural hypothyroidism; E55.9 Vitamin D deficiency, unspecified
CPT/HCPCS: 36415; 80053; 82306; 84432; 84439; 84443; 84481; 86376; 86800

== ENCOUNTER → 2019-06-02 11:49 | Outpatient (CLI) | payer OTHER, SELFPAY ==
[2019-02-20 08:36] VITALS: BMI 24.5
[2019-06-02 13:53] LABS: Free T3 2.7 pg/mL (2.18-3.98); Thyroid Stim Hormone (TSH) 9.65 uIU/mL (0.358-3.74)
[2019-06-03 20:56] LABS: t-Transglutaminase IgA >100 U/mL (0-3)
== END ==
PROVIDERS: Family Provider Family Medicine; PCP Family Medicine; Referring Provider Internal Medicine Endocrinology, Diabetes & Metabolism; Visit Provider Internal Medicine Endocrinology, Diabetes & Metabolism
DX: E55.9 Vitamin D deficiency, unspecified (principal); E89.0 Postprocedural hypothyroidism
CPT/HCPCS: 36415; 83516; 84443; 84481

== ENCOUNTER → 2019-11-05 11:12 | Outpatient (CLI) | payer OTHER, SELFPAY ==
[2019-11-05 10:38] VITALS: BMI 24.5
[2019-11-06 07:09] LABS: SARS-COV-2 TOTAL ABS Nonreactive (Nonreactive)
[2019-11-11 18:20] LABS: HPV Reflexed? NOT INDICATED
== END ==
PROVIDERS: PCP Family Medicine; Referring Provider Family Medicine; Visit Provider Family Medicine
DX: Z20.828 Contact with and (suspected) exposure to other viral communicable diseases (principal); Z01.419 Encounter for gynecological examination (general) (routine) without abnormal findings
CPT/HCPCS: 86769; 88175; G2023; G0145

== ENCOUNTER → 2019-11-10 12:16 | Outpatient (CLI) | payer OTHER, SELFPAY ==
[2019-11-05 10:38] VITALS: BMI 24.5
--- NOTE | 2019-11-10 12:17 | BI_ITS ---
MAMMOGRAPHY - BILATERAL SCREENING 3-D TOMOSYNTHESIS REASON FOR EXAM: Female, 59 years old. Routine screening PERTINENT HISTORY: BILAT SCREENING - FAM HX OF MOTHER @ AGE 69, MATERNAL AUNT @ AGE 60-70''S and amp; MAT COUSIN @ AGE 56 - LT BX 10/2018 = NEG - RT STEREO BX 17+ YRS. AGO. TECHNIQUE: 2-D mammograms and 3-D Tomosynthesis of the breast (s) were performed. CAD was performed. COMPARISON: 11/04/2018 FINDINGS: The breast composition is heterogeneously dense that can obscure small breast masses. Scattered benign calcifications are seen. No dense spiculated masses or suspicious microcalcifications are identified. No architectural distortion is identified. There is no skin thickening or retraction. There has been no significant change since the prior study. BI/SCREEN MAMM (CAD) W/KELVIN BILAT IMPRESSION: No mammographic signs of malignancy. Routine yearly mammograms recommended. ASSESSMENT CATEGORY: BIRADS Category 2: Benign. A letter regarding these results will be sent to the patient by the facility within 30 days. FOLLOW UP RECOMMENDATION: Yearly follow up mammogram recommended. (A) Approximately 10% of breast cancers are not detected by mammography. A normal mammogram should not delay biopsy of a clinically suspicious abnormality. Electronically Signed: Holland Lozano MD at 13:22 EDT , Service support ,
== END ==
PROVIDERS: PCP Family Medicine; Referring Provider Family Medicine; Visit Provider Family Medicine
DX: Z12.31 Encounter for screening mammogram for malignant neoplasm of breast (principal)
CPT/HCPCS: 77063; 77067

== ENCOUNTER → 2020-02-04 11:36 | Outpatient (CLI) | payer OTHER, SELFPAY ==
[2019-11-05 10:38] VITALS: BMI 24.5
[2020-02-04 12:59] LABS: T4 Free Direct 1.58 ng/dL (0.76-1.46); Thyroid Stim Hormone (TSH) 0.19 uIU/mL (0.358-3.74)
[2020-02-05 17:07] LABS: Anti-Thyroglobulin AB < 1.0 IU/mL (0.0-0.9); Thyroglobulin, Serum Qt. < 0.1 ng/mL (1.5-38.5); Thyroid Peroxidase AB 18 IU/mL (0-34)
== END ==
PROVIDERS: PCP Family Medicine; Referring Provider Internal Medicine Endocrinology, Diabetes & Metabolism; Visit Provider Internal Medicine Endocrinology, Diabetes & Metabolism
DX: C73 Malignant neoplasm of thyroid gland (principal); E89.0 Postprocedural hypothyroidism
CPT/HCPCS: 36415; 84432; 84439; 84443; 86376; 86800

== ENCOUNTER 2020-07-28 12:00 | Outpatient (RCR) | payer OTHER, SELFPAY ==
[2019-11-05 10:38] VITALS: BMI 24.5
[2020-07-28] MEDS: COVID-19 VACC, MRNA(PFIZER)/PF 30 MCG/0.3 ML SYRINGE IM (12:02)
[2020-08-18] MEDS: COVID-19 VACC, MRNA(PFIZER)/PF 30 MCG/0.3 ML SYRINGE IM (12:08)
== END 2020-10-25 23:59 ==
LOC: IMMUN 12:00
PROVIDERS: PCP Family Medicine; Visit Provider Family Medicine
DX: Z23 Encounter for immunization (principal)
CPT/HCPCS: 0001A; 0002A; 91300

== ENCOUNTER → 2020-10-20 09:30 | Outpatient (CLI) | payer OTHER, SELFPAY ==
[2019-11-05 10:38] VITALS: BMI 24.5
[2020-10-20 10:00] LABS: Hematocrit 40.7 % (37-47); Mean Corp Hgb Conc 31.9 g/dL (32-36); Mean Corpuscular Hgb 28.8 pg (27.0-32.0); Mean Corpuscular Volume 90.2 fL (81-99); Mean Platelet Vol. 9.9 fl (6.2-12.0); Platelet Count 304 K/mm3 (150-450); RBC Distribution Width CV 14.8 % (11.6-14.6); RBC Distribution Width SD 49.1 fl (35.1-43.9); Red Blood Count 4.51 M/mm3 (4.2-5.4); White Blood Count 5.8 K/mm3 (4.4-11.0)
[2020-10-20 10:22] LABS: Vitamin D,25 Hydroxy 44.4 ng/mL
[2020-10-20 10:33] LABS: AST(SGOT) 16 U/L (15-37); Alanine Aminotransfer ALT/SGPT 22 U/L (13-56); Albumin, Serum 3.8 g/dL (3.2-5.0); Alkaline Phosphatase 68 U/L (45-117); Anion Gap 8 (5-15); BUN 12 mg/dL (7-18); BUN/Creat Ratio 13.7 RATIO (10-20); Calcium,Total 8.5 mg/dL (8.5-10.1); Chloride 106 mmol/L (98-107); Creatinine, Serum 0.87 mg/dL (0.55-1.02); EST Glomerular Filtration Rate 70 mL/min (>60); Est Glom Filt Rate - Afr Amer 85 mL/min (>60); Globulin 3.8 g/dL (2.2-4.2); Glucose 94 mg/dL (74-106); Protein, Total 7.6 g/dL (6.4-8.2); Sodium Level 142 mmol/L (136-145); T4 Free Direct 0.98 ng/dL (0.76-1.46)
== END ==
PROVIDERS: PCP Family Medicine; Referring Provider Internal Medicine Endocrinology, Diabetes & Metabolism; Visit Provider Internal Medicine Endocrinology, Diabetes & Metabolism
DX: C73 Malignant neoplasm of thyroid gland (principal); E89.0 Postprocedural hypothyroidism; L13.0 Dermatitis herpetiformis; R76.8 Other specified abnormal immunological findings in serum; Z13.820 Encounter for screening for osteoporosis
CPT/HCPCS: 36415; 80053; 82306; 84439; 84443; 84481; 85027

== ENCOUNTER → 2020-11-23 | Outpatient (CLI) | payer OTHER, SELFPAY ==
[2020-11-23 09:37] VITALS: BMI 24.5
[2020-11-25 18:41] LABS: HPV Reflexed? NOT INDICATED
== END | disposition home or self-care (01) ==
LOC: LABSPEC 10:21
PROVIDERS: PCP Family Medicine; Referring Provider Family Medicine; Visit Provider Family Medicine
DX: Z01.419 Encounter for gynecological examination (general) (routine) without abnormal findings (principal)
CPT/HCPCS: 88175; G0145

== ENCOUNTER → 2020-12-07 09:33 | Outpatient (CLI) | payer OTHER, SELFPAY ==
[2020-12-07 09:12] VITALS: BMI 26.1
[2020-12-07 12:37] LABS: Anion Gap 7 (5-15); BUN 16 mg/dL (7-18); BUN/Creat Ratio 20.7 RATIO (10-20); Calcium,Total 8.5 mg/dL (8.5-10.1); Chloride 108 mmol/L (98-107); Creatinine, Serum 0.77 mg/dL (0.55-1.02); EST Glomerular Filtration Rate 81 mL/min (>60); Est Glom Filt Rate - Afr Amer 98 mL/min (>60); Glucose 88 mg/dL (74-106); Potassium 4.2 mmol/L (3.5-5.1); Sodium Level 142 mmol/L (136-145)
== END ==
PROVIDERS: PCP Family Medicine; Referring Provider Nurse Practitioner Family; Visit Provider Nurse Practitioner Family
DX: I10 Essential (primary) hypertension (principal)
CPT/HCPCS: 36415; 80048

== ENCOUNTER → 2020-12-15 08:32 | Outpatient (CLI) | payer OTHER, SELFPAY ==
[2020-11-23 09:37] VITALS: BMI 24.5
[2020-12-07 09:12] VITALS: BMI 26.1
--- NOTE | 2020-12-15 08:34 | BI_ITS ---
MAMMOGRAPHY - BILATERAL SCREENING REASON FOR EXAM: Female, 60 years old. Routine annual screening examination. PERTINENT HISTORY: Mother with breast cancer. Remote left stereotactic breast biopsy. Aunt with breast cancer. TECHNIQUE: Digital bilateral breast kelvin (3D mammographic acquisition) in the CC and MLO projections. 2-D mediolateral oblique (MLO) and craniocaudad (CC) views of both breasts were obtained. CAD: Full Field Digital Mammography with Computer Added Detection was performed. COMPARISON: Comparison is made with prior study dated 11/10/2019 and 11/04/2018. FINDINGS: Breast Composition: The breasts are heterogeneously dense, which may obscure small masses. There are no dominant masses or suspicious calcifications. Stable small benign-appearing bilateral axillary lymph nodes. A tissue clip marker is seen in the central portion of the left breast. No other significant abnormalities are identified. There has been no significant change since the prior study. BI/SCRN MAMM (CAD)W/KELVIN BILAT IMPRESSION: Stable bilateral screening mammogram. Yearly follow-up mammogram recommended. (A) ASSESSMENT CATEGORY: BIRADS Category 2: Benign. A letter regarding these results will be sent to the patient by the facility within 30 days. Approximately 10% of breast cancers are not detected by mammography. A normal mammogram should not delay biopsy of a clinically suspicious abnormality. [id number] Electronically Signed: Chriss Horan MD at 9:26 EDT , Service support ,
--- NOTE | 2020-12-15 08:54 | BD_ITS ---
STUDY: DUAL ENERGY X-RAY ABSORPTIOMETRY / DXA REASON FOR EXAM: Female, 60 years old. The patient is postmenopausal. TECHNIQUE: Bone Mineral Density (BMD) measurements of lumbar spine and bilateral hips were obtained. COMPARISON: None. FINDINGS: Lumbar Spine (L1-L4): g/cm2 (0.936) / T-score (-1.0) / Z-score (0.5) Findings are suggestive of normal bone density with a low fracture risk. Left Femur Total: g/cm2 (0.789) / T-score (-1.3) / Z-score (-0.2) Left Femoral Neck: g/cm2 (0.705) / T-score (-1.3) / Z-score (0.0) Right Femur Total: g/cm2 (0.780) / T-score (-1.3) / Z-score (-0.3) Right Femoral Neck: g/cm2 (0.679) / T-score (-1.5) / Z-score (-0.2) BD/Dexa Bone Density Study IMPRESSION: The patient is considered osteopenic as outlined below according to World [employer] Organization (WHO) criteria with a low fracture risk. Reference Information: The T-score is the number of standard deviations above or below the standard which is normal for young adults at their peak bone mineral density. The World Health Organization (WHO) interprets the T-scores as follows: Above -1 Normal bone density Between -1 and -2.5 Osteopenia Equal to / or below -2.5 Osteoporosis As a practical clinical guideline, osteopenia may be graded as follows: Mild -1 through -1.5 Moderate -1.6 through -2.0 Severe -2.1 through -2.4 The Z-score is the number of standard deviations above or below age-matched controls. A Z-score of less than -1.5 would be considered abnormal. References: 1. NIH Osteoporosis and Related Bone Diseases www osteo.org 2. International Society for Clinical Densitometry www iscd.org 3. National Osteoporosis Foundation www nof.org Electronically Signed: Chriss Horan MD at 14:17 EDT , Service support ,
== END ==
PROVIDERS: PCP Family Medicine; Referring Provider Family Medicine; Visit Provider Family Medicine
DX: Z12.31 Encounter for screening mammogram for malignant neoplasm of breast (principal); Z78.0 Asymptomatic menopausal state; M85.80 Other specified disorders of bone density and structure, unspecified site; Z80.3 Family history of malignant neoplasm of breast
CPT/HCPCS: 77063; 77067; 77080

== ENCOUNTER → 2021-01-05 15:14 | Outpatient (CLI) | payer OTHER, SELFPAY ==
[2021-01-05 17:17] LABS: T4 Free Direct 1.03 ng/dL (0.76-1.46); Thyroid Stim Hormone (TSH) 1.54 uIU/mL (0.358-3.74)
== END ==
PROVIDERS: PCP Family Medicine; Visit Provider Internal Medicine Endocrinology, Diabetes & Metabolism
DX: C73 Malignant neoplasm of thyroid gland (principal); E89.0 Postprocedural hypothyroidism; L13.0 Dermatitis herpetiformis; R76.8 Other specified abnormal immunological findings in serum; E55.9 Vitamin D deficiency, unspecified
CPT/HCPCS: 36415; 84439; 84443

== ENCOUNTER → 2021-10-06 | Outpatient (CLI) | payer MEDICAID, SELFPAY ==
[2021-10-06 09:51] LABS: Hematocrit 40.1 % (37-47); Hemoglobin 13.1 g/dL (12.0-15.0); Mean Corp Hgb Conc 32.7 g/dL (32-36); Mean Corpuscular Hgb 28.7 pg (27.0-32.0); Mean Corpuscular Volume 87.9 fL (81-99); Mean Platelet Vol. 10.2 fl (6.2-12.0); Platelet Count 320 K/mm3 (150-450); RBC Distribution Width CV 14.7 % (11.6-14.6); RBC Distribution Width SD 47.7 fl (35.1-43.9); Red Blood Count 4.56 M/mm3 (4.2-5.4); White Blood Count 5.5 K/mm3 (4.4-11.0)
[2021-10-06 10:21] LABS: ALB/GLOB Ratio 1.1 RATIO (0.9-2.4); AST(SGOT) 13 U/L (15-37); Alanine Aminotransfer ALT/SGPT 23 U/L (13-56); Alkaline Phosphatase 58 U/L (45-117); Anion Gap 7 (5-15); BUN 11 mg/dL (7-18); BUN/Creat Ratio 14.8 RATIO (10-20); Calcium,Total 8.7 mg/dL (8.5-10.1); Chloride 111 mmol/L (98-107); Creatinine, Serum 0.74 mg/dL (0.55-1.02); EST Glomerular Filtration Rate 84 mL/min (>60); Est Glom Filt Rate - Afr Amer 102 mL/min (>60); Free T3 2.7 pg/mL (2.18-3.98); Globulin 3.7 g/dL (2.2-4.2); Glucose 102 mg/dL (74-106); Potassium 3.8 mmol/L (3.5-5.1); Protein, Total 7.7 g/dL (6.4-8.2); Sodium Level 142 mmol/L (136-145); T4 Free Direct 1.02 ng/dL (0.76-1.46); Thyroid Stim Hormone (TSH) 1.91 uIU/mL (0.358-3.74)
[2021-10-09 15:08] LABS: Thyroid Peroxidase AB 11 IU/mL (0-34)
[2021-10-09 18:46] LABS: Thyroglobulin Antibody < 1.0 IU/mL (0.0-0.9)
== END | disposition home or self-care (01) ==
PROVIDERS: PCP Family Medicine; Referring Provider Internal Medicine Endocrinology, Diabetes & Metabolism; Visit Provider Internal Medicine Endocrinology, Diabetes & Metabolism
DX: E89.0 Postprocedural hypothyroidism (principal); C73 Malignant neoplasm of thyroid gland; L13.0 Dermatitis herpetiformis; R76.8 Other specified abnormal immunological findings in serum; E55.9 Vitamin D deficiency, unspecified
CPT/HCPCS: 36415; 80053; 82306; 84439; 84443; 84481; 85027; 86376; 86800

== ENCOUNTER → 2021-12-19 | Outpatient (CLI) | payer MEDICAID, SELFPAY ==
--- NOTE | 2021-12-19 12:25 | BI_ITS ---
MAMMOGRAPHY - BILATERAL SCREENING 3-D TOMOSYNTHESIS REASON FOR EXAM: Female, 61 years old. Routine screening PERTINENT HISTORY: Mother and aunt with breast cancer.. TECHNIQUE: 2-D mammograms and 3-D Tomosynthesis of the breast (s) were performed. CAD was performed. COMPARISON: 12/15/2020 FINDINGS: The breast composition is heterogeneously dense that can obscure small breast masses. Scattered benign calcifications are seen. No dense spiculated masses or suspicious microcalcifications are identified. No architectural distortion is identified. There is no skin thickening or retraction. There has been no significant change since the prior study. BI/SCRN MAMM (CAD)W/KELVIN BILAT IMPRESSION: No mammographic signs of malignancy. Routine yearly mammograms recommended. ASSESSMENT CATEGORY: BIRADS Category 2: Benign. A letter regarding these results will be sent to the patient by the facility within 30 days. FOLLOW UP RECOMMENDATION: Yearly follow up mammogram recommended. (A) Approximately 10% of breast cancers are not detected by mammography. A normal mammogram should not delay biopsy of a clinically suspicious abnormality. Electronically Signed: Holland Lozano MD at 11:16 EDT ,
== END | disposition home or self-care (01) ==
LOC: OPBI 12:23
PROVIDERS: PCP Family Medicine; Visit Provider Physician Assistant
DX: Z12.31 Encounter for screening mammogram for malignant neoplasm of breast (principal); Z80.3 Family history of malignant neoplasm of breast
CPT/HCPCS: 77063; 77067

== ENCOUNTER → 2022-01-17 | Outpatient (CLI) | payer MEDICAID, SELFPAY ==
[2022-01-17 13:21] LABS: Mucous, Urine 0 SEEN /hpf (<or=2+)
[2022-01-17 16:02] LABS: Color, Urine Straw (Yellow); Glucose, Dipstick Normal (Normal); Ketone-Dipstick Negative (Negative); Leukocyte Esterase-Dipstick 500 /ul (Negative); Nitrite-Dipstick Negative (Negative); Occult Blood-Urine 150 /ul (Negative); Protein-Dipstick 30 mg/dl (Negative); Urine Bilirubin Dipstick Negative (Negative); Urine Clarity Sl. Cloudy (Clear); Urine Urobilinogen Normal (Normal); Urine pH 6.5 (5.0 - 8.0)
[2022-01-17 16:16] LABS: Bacteria 2+ /hpf (None Seen); Red Blood Cells-Urine 5-10 SEEN /hpf (0-5); Squamous Epithelial Cells - UA 0-5 SEEN /hpf (5-10); White Blood Cells 10-25 SEEN /hpf (0-5)
[2022-01-25 16:40] LABS: HPV Reflexed? NOT INDICATED
== END | disposition home or self-care (01) ==
LOC: LABSPEC 13:20
PROVIDERS: PCP Family Medicine; Referring Provider Family Medicine; Visit Provider Family Medicine
DX: Z01.419 Encounter for gynecological examination (general) (routine) without abnormal findings (principal); R30.0 Dysuria
CPT/HCPCS: 81001; 88142

== ENCOUNTER 2022-03-27 08:32 | Day surgery (SDC) | payer MEDICAID, SELFPAY ==
[2022-03-27] MEDS: Lactated Ringers 1,000 ML 15 ML IV (08:40)
[2022-03-27 08:55] VITALS: BP 150/83; PULSE 73; RESP 18; TEMP 36.8; O2SAT 99; BMI 24.9
--- NOTE | 2022-03-27 09:33 | H&P.OPEN ---
HPI - General HPI Narrative LUCÍA AGUERO, is a 61 F who presents for surveillance colonoscopy. Her last colonoscopy was 5 years ago and 1 polyp was removed. Patient denies any abdominal pain or blood in the stool. No new changes since last colonoscopy. [facility] Medical History (Updated 03/27/22 @ 09:[address] Robert Keith MD) Acute appendicitis Celiac disease Colon polyps dense breast fibrosis Easy bruising focal microcalcifications History of thyroid cancer Hypertension Hypothyroidism Non-smoker Polyp of cervix Post-menopausal Restless legs Screening for colon cancer Thyroid disease Wears glasses Home Medications levothyroxine 100 mcg tablet 100 mcg PO DAILY #90 tabs 10/23/21 [Rx Last Taken Unknown] valsartan 80 mg tablet 80 mg PO DAILY #90 tabs 12/11/21 [Rx Last Taken Unknown] Allergy/AdvReac Type Severity Reaction Status Date / Time adhesive Allergy Rash Verified 03/22/22 16:47 Family History (Updated 03/07/22 @ 11:44 by Evie Masterson) Mother Cancer thyroid Breast cancer Diabetes Hypertension Heart disease Colon polyps Father Heart disease Hypertension Brother Cancer melanoma Grandmother Rectal cancer Surgical History History of appendectomy (~11/13/18) History of colonoscopy (~2016) History of right breast biopsy History of thyroidectomy Hx of left breast biopsy (~11/14/18) Status post biopsy of thyroid gland Social History Smoking Status: Never smoker alcohol intake: current alcohol intake frequency: a few times a month Alcohol type: beer and wine what type of physical activity do you participate in: walking frequency: daily Past Medical/Surgical History Planned Operation Planned Operative Procedure/s: COLONOSCOPY S.O.S: No Previous Hospitalizations/Surgeries HX Hospitalizations: No HX of Surgeries: COLONOSCOPY 2017 Any Problems With Anesthesia: No You/Your Family Experience Fever (Hyperthermia) With Anes: No Cholinesterase deficiency: No Cardiovascular Hx Chest Pain within Last 2 months: No Hx of Irregular Heartbeat and/or Afib: No Hx Heart Attack: No Hx Congestive Heart Failure: No Hx Rheumatic Fever: No Hx Hypertension: Yes (PER PT CONTROLLED ON MEDS) Hx Internal Defibrillator: No Hx Pacemaker: No Hx Cardiac Catheterization: No Hx Cardiac Surgery/Stents/Etc.: No Hx Stress Test: No Hx Pain in Legs when Walking/Leg Cramps: No Respiratory Chronic Cough: No HX of Shortness of Breath: No Hoarseness: No Hx Chronic Obstructive Pulmonary Disease (COPD): No Hx Asthma: No Hx Emphysema: No Hx Sleep Apnea: No Hx Respiratory Tract Infection/Cold (presently): No Do You Snore Loudly (louder than talking or can be heard): No Do You Often Feel Tired/ Fatigued/ Sleepy Dring Daytime?: No Has Anyone Observed You Stop Breathing During Sleep?: No Result (for STOP score): Negative Hx Smoking: No Smoking Status: Never smoker Gastrointestinal Hx Gastroesophageal Reflux: No Hx Gastrointestinal Disorders: Yes (HX POLYP, REMOVED) Hx Gastrointestinal Bleed: No Hx Ulcer: Yes (PER HX, RESOLVED) Hx Hiatal Hernia: No Difficulty Chewing/Swallowing: No Special diet followed at home: No Hx Unplanned Weight Loss of 20#: No HX Unplanned Weight Gain of 20#: No Neurological Hx Seizures: No HX Syncope/Blackout Spells/Unconsciousness: No Hx Transient Ischemic Attacks (TIA): No Hx Multiple Sclerosis: No Hx Parkinson's Disease: No Hx Head/Neck Injury: No Hx Headaches: No Hx Back Injury/Pain: No Recent Onset of Speech Difficulty: No Restless Legs: Yes (NO MEDS) Does patient have nerve stimulator: No Blood Disorder Hx Leukemia: No Bleeding Tendencies: Yes (bruises easily) Hx Deep Vein Thrombosis: No Hx High Cholesterol: No Blood Transmitted Disease: No Hx Hepatitis: No Hx Cirrhosis: No Hx Anemia: No Hx Blood Disorders: No Reproduction Is Patient Lactating: No Hx Hysterectomy: No Hx Tubal Ligation: No Are You Post Menopause: Yes Genitourinary Hx Renal Disease: No Hx Dialysis: No Musculoskeletal Hx Arthritis: No Hx Rheumatoid Arthritis: No Hx Gout: No Recent Onset of an Orthopedic Problem: No Endocrine Hx Diabetes: No Thyroid Disease: Yes (on med, NODULES) Hx Steroid Therapy: No Psycho/Social Hx Substance Use: No Hx Alcohol Use: Yes Hx Anxiety: No Hx Depression: No Mental Illness: No Hx Dementia: No Miscellaneous Hx Cancer: Yes (THYROID) Recent Exposure to Contagious Disease: No Hx of C-Diff: No Any Loose Teeth: No Allergies adhesive Allergy (Verified 03/22/22 16:47) Rash FROM BANDAID Discharge Is Pt Admitted From a Senior Care, or a Retirement: No Who Could Help: After D/C, Where Do you Plan to Go: Return Home From the [facility] History Number of Risk Factors: 4 Vital Signs Vital Signs Vital Signs: 03/27/22 08:55 03/27/22 08:55 Temperature 98.2 F Temperature Source Temporal Pulse Rate 73 Respiratory Rate 18 Respiratory Pattern Normal Blood Pressure 150/83 H Blood Pressure Mean 105 Blood Pressure Source Monitor Blood Pressure Position Semi-Fowlers Blood Pressure Location Right Arm Pulse Ox 99 Oxygen Delivery Method Room Air Weight Weight: 149 lb 14.629 oz Body Mass Index (BMI) 24.9 Physical Exam Const alert and oriented x3 HEENT normocephalic Eyes PERRL Resp normal respiratory effort and normal air movement Cardio regular rate and regular rhythm GI soft to palpation, non-tender and non-distended Extremity normal to inspection Assessment & Plan Assessment/Plan (1) History of colon polyps: PLAN: I explained endoscopy in detail to the patient. I explained the risks including but not limited to stroke or heart attack with anesthesia, perforation of the GI tract, bleeding, infection. I explained that any of these could necessitate further emergency surgery. The patient understands and all questions were answered sufficiently. The patient wishes to proceed with procedure. Robert Keith MD Pager: [facility] [address] [place] [address] [address] [place] [address] Office: Surgery Risks - Colonoscopy Risks Include but are not Limited To: Risks include but are not limited to: Bleeding, perforation requiring further surgery, inability to complete colonoscopy requiring barium enema.
[2022-03-27 10:05] VITALS: BP 100/56; BP 150/83; PULSE 80; RESP 14; TEMP 36.4; O2SAT 98
--- NOTE | 2022-03-27 10:06 | OP.COLON_ITS ---
Patient Name: Juana Blake Procedure Date: 03/27/2022 9:37 AM Date of : 1960 Age: 61 Procedure: Colonoscopy Indications: High risk colon cancer surveillance: Personal history of colonic polyps Providers: Robert Keith MD Medicines: Monitored Anesthesia Care Patient Profile: This is a 61 year old female. Refer to note in patient chart for documentation of history and physical. Last Colonoscopy: 5 years ago. Complications: No immediate complications. Procedure: Pre-Anesthesia Assessment: - Prior to the procedure, a History and Physical was performed, and patient medications and allergies were reviewed. The patient's tolerance of previous anesthesia was also reviewed. The risks and benefits of the procedure and the sedation options and risks were discussed with the patient. All questions were answered, and informed consent was obtained. Prior Anticoagulants: The patient has taken no previous anticoagulant or antiplatelet agents. After reviewing the risks and benefits, the patient was deemed in satisfactory condition to undergo the procedure. After I obtained informed consent, the scope was passed under direct vision. Throughout the procedure, the patient's blood pressure, pulse, and oxygen saturations were monitored continuously. The pediatric colonoscope was introduced through the anus and advanced to the cecum, identified by appendiceal orifice and ileocecal valve. The colonoscopy was performed without difficulty. The patient tolerated the procedure well. The quality of the bowel preparation was good. Scope In: 9:45:29 AM Scope Withdrawal Time 0 hours 5 minutes 43 seconds Scope Out: 10:01:19 AM Total Procedure Duration Time 0 hours 15 minutes 50 seconds Findings: The entire examined colon appeared normal on direct and retroflexion views. Impression: - The entire examined colon is normal on direct and retroflexion views. - No specimens collected. Recommendation: - Discharge patient to home. - Resume previous diet. - Continue present medications. - Repeat colonoscopy in 10 years for screening purposes. Procedure Code(s): --- Professional --- 66136, Colonoscopy, flexible; diagnostic, including collection of specimen(s) by brushing or washing, when performed (separate procedure) Diagnosis Code(s): --- Professional --- Z86.010, Personal history of colonic polyps CPT copyright 2017 [employer]. All rights reserved. The codes documented in this report are preliminary and upon orthopedic coder review may be revised to meet current compliance requirements. Robert Keith MD 03/27/2022 10:05:46 AM This report has been signed electronically. Number of Addenda: 0 Note Initiated On: 03/27/2022 9:37 AM
--- NOTE | 2022-03-27 10:07 | OP.CCLET_ITS ---
03/27/2022 Michael Baer Re : Colonoscopy procedure for Juana Blake Dear Dr. Baer This procedure was performed on Sunday, March 27, 2022. My impressions and recommendations are as follows: Impressions : - The entire examined colon is normal on direct and retroflexion views. - No specimens collected. Recommendations : - Discharge patient to home. - Resume previous diet. - Continue present medications. - Repeat colonoscopy in 10 years for screening purposes. My findings are described in the full procedure note, which is enclosed. If I can be of further assistance, please feel free to contact me at Doctor phone number(s): , Work: . Sincerely, Robert Keith MD 03/27/2022 10:05:46 AM This report has been signed electronically.
[2022-03-27 10:10] VITALS: BP 106/61; BP 150/83; PULSE 77; RESP 14; O2SAT 98
[2022-03-27 10:15] VITALS: BP 106/71; BP 150/83; PULSE 73; RESP 14; O2SAT 98
[2022-03-27 10:20] VITALS: BP 115/74; BP 150/83; PULSE 62; RESP 14; TEMP 37.1; O2SAT 97
[2022-03-27 10:39] VITALS: BP 150/83
== END 2022-03-27 10:48 | disposition home or self-care (01) ==
LOC: EN 08:33 → AC 08:34
PROVIDERS: PCP Family Medicine; Referring Provider Family Medicine; Visit Provider Surgery
PROC: 0DJD8ZZ Inspection of Lower Intestinal Tract, Via Natural or Artificial Opening Endoscopic (ICD-10-PCS; CPT 45378; principal; 2022-03-27 09:40)
DX: Z12.11 Encounter for screening for malignant neoplasm of colon (principal); I10 Essential (primary) hypertension; E03.9 Hypothyroidism, unspecified; G25.81 Restless legs syndrome; Z79.899 Other long term (current) drug therapy; Z87.19 Personal history of other diseases of the digestive system; Z85.850 Personal history of malignant neoplasm of thyroid; Z86.010 Personal history of colon polyps
CPT/HCPCS: 45378; J7120; J2405

== ENCOUNTER → 2022-10-05 | Outpatient (CLI) | payer MEDICAID, SELFPAY ==
[2022-10-05 12:38] LABS: T4 Free Direct 1.15 ng/dL (0.76-1.46); Thyroid Stim Hormone (TSH) 1.07 uIU/mL (0.358-3.74)
[2022-10-08 18:07] LABS: Anti-Thyroglobulin AB < 1.0 IU/mL (0.0-0.9); Thyroglobulin, Serum Qt. < 0.1 ng/mL (1.5-38.5)
== END | disposition home or self-care (01) ==
PROVIDERS: PCP Family Medicine; Referring Provider Internal Medicine Endocrinology, Diabetes & Metabolism; Visit Provider Internal Medicine Endocrinology, Diabetes & Metabolism
DX: C73 Malignant neoplasm of thyroid gland (principal); E03.9 Hypothyroidism, unspecified
CPT/HCPCS: 36415; 84432; 84439; 84443; 86800

== ENCOUNTER → 2022-12-20 | Outpatient (CLI) | payer MEDICAID, SELFPAY ==
--- NOTE | 2022-12-20 09:06 | BI_ITS ---
MAMMOGRAPHY - BILATERAL SCREENING REASON FOR EXAM: Female, 62 years old. Routine annual screening examination. PERTINENT HISTORY: Mother with breast cancer. Aunt with breast cancer. Remote right stereotactic breast biopsy. Prior ultrasound-guided left breast biopsy. TECHNIQUE: Digital bilateral breast kelvin (3D mammographic acquisition) in the CC and MLO projections. 2-D mediolateral oblique (MLO) and craniocaudad (CC) views of both breasts were obtained. CAD: Full Field Digital Mammography with Computer Added Detection was performed. COMPARISON: Comparison is made with prior study dated December 19, 2021 and December 15, 2020. FINDINGS: Breast Composition: The breasts are heterogeneously dense, which may obscure small masses. There are no dominant masses or suspicious calcifications. A tissue clip marker is seen in the upper central portion of the left breast. Stable small bilateral axillary lymph nodes. No other significant abnormalities are identified. There has been no significant change since the prior study. BI/SCRN MAMM (CAD)W/KELVIN BILAT IMPRESSION: Stable bilateral screening mammogram. Yearly follow-up mammogram recommended. (A) ASSESSMENT CATEGORY: BIRADS Category 2: Benign. A letter regarding these results will be sent to the patient by the facility within 30 days. Approximately 10% of breast cancers are not detected by mammography. A normal mammogram should not delay biopsy of a clinically suspicious abnormality. [id number] Electronically Signed: Chriss Horan MD at 10:32 EDT ,
== END | disposition home or self-care (01) ==
LOC: OPBI 09:03
PROVIDERS: PCP Family Medicine; Referring Provider Internal Medicine; Visit Provider Internal Medicine
DX: Z12.31 Encounter for screening mammogram for malignant neoplasm of breast (principal); Z80.3 Family history of malignant neoplasm of breast
CPT/HCPCS: 77063; 77067

== ENCOUNTER → 2023-01-16 | Outpatient (CLI) | payer MEDICAID, SELFPAY ==
[2023-01-16 11:37] LABS: Mucous, Urine 0 SEEN /hpf (<or=2+); Red Blood Cells-Urine 0 SEEN /hpf (0-5); Squamous Epithelial Cells - UA 0 SEEN /hpf (5-10)
[2023-01-16 12:44] LABS: Color, Urine Yellow (Yellow); Glucose, Dipstick Normal (Normal); Ketone-Dipstick Negative (Negative); Leukocyte Esterase-Dipstick 500 /ul (Negative); Nitrite-Dipstick Negative (Negative); Occult Blood-Urine 10 /ul (Negative); Protein-Dipstick 15 mg/dl (Negative); Specific Gravity, Urine 1.005 (1.002-1.030); Urine Bilirubin Dipstick Negative (Negative); Urine Clarity Sl. Cloudy (Clear); Urine Urobilinogen Normal (Normal)
[2023-01-16 13:05] LABS: Bacteria 1+ /hpf (None Seen); White Blood Cells 10-25 SEEN /hpf (0-5)
[2023-01-16 13:29] LABS: ALB/GLOB Ratio 0.9 RATIO (0.9-2.4); AST(SGOT) 19 U/L (15-37); Alanine Aminotransfer ALT/SGPT 23 U/L (13-56); Albumin, Serum 3.5 g/dL (3.2-5.0); Alkaline Phosphatase 73 U/L (45-117); Anion Gap 8 (5-15); BUN 9 mg/dL (7-18); BUN/Creat Ratio 11.2 RATIO (10-20); Calcium,Total 8.9 mg/dL (8.5-10.1); Chloride 110 mmol/L (98-107); Cholesterol 214 mg/dL (200); EST Glomerular Filtration Rate 77 mL/min (>60); Est Glom Filt Rate - Afr Amer 93 mL/min (>60); Globulin 4.1 g/dL (2.2-4.2); Glucose 98 mg/dL (74-106); High Density Lipoprotein 49 mg/dL; Potassium 3.7 mmol/L (3.5-5.1); Protein, Total 7.6 g/dL (6.4-8.2); Sodium Level 140 mmol/L (136-145); Thyroid Stim Hormone (TSH) 3.49 uIU/mL (0.358-3.74); Triglycerides 204 mg/dL; Very Low Density Lipoprotein 41 mg/dL (5-40)
[2023-01-25 19:53] LABS: HPV, High Risk Negative
== END | disposition home or self-care (01) ==
LOC: BIMLAB 11:35
PROVIDERS: PCP Family Medicine; Visit Provider Family Medicine
DX: R30.0 Dysuria (principal); I10 Essential (primary) hypertension; E03.9 Hypothyroidism, unspecified; N84.1 Polyp of cervix uteri
CPT/HCPCS: 36415; 80053; 80061; 81001; 84443; 87623; 87624; 88142

== ENCOUNTER → 2023-01-23 | Outpatient (CLI) | payer MEDICAID, SELFPAY | END | disposition home or self-care (01) | LOC: LABSPEC 09:50 | PROVIDERS: PCP Family Medicine; Visit Provider Family Medicine | DX: Z87.440 Personal history of urinary (tract) infections (principal) | CPT/HCPCS: 87077; 87086; 87088; 87186 ==

== ENCOUNTER → 2023-10-01 | Outpatient (CLI) | payer MEDICAID, SELFPAY ==
[2023-10-01 13:46] LABS: T4 Free Direct 1.28 ng/dL (0.76-1.46); Thyroid Stim Hormone (TSH) 1.74 uIU/mL (0.358-3.74)
[2023-10-03 17:07] LABS: Anti-Thyroglobulin AB < 1.0 IU/mL (0.0-0.9); Thyroglobulin, Serum Qt. < 0.1 ng/mL (1.5-38.5)
== END | disposition home or self-care (01) ==
LOC: LAB 10:28
PROVIDERS: PCP Family Medicine; Referring Provider Internal Medicine Endocrinology, Diabetes & Metabolism; Visit Provider Internal Medicine Endocrinology, Diabetes & Metabolism
DX: C73 Malignant neoplasm of thyroid gland (principal); E03.9 Hypothyroidism, unspecified
CPT/HCPCS: 36415; 84432; 84439; 84443; 86800

== ENCOUNTER → 2024-01-01 | Outpatient (CLI) | payer MEDICAID, SELFPAY | END | disposition home or self-care (01) | PROVIDERS: PCP Family Medicine; Referring Provider Family Medicine; Visit Provider Family Medicine | DX: Z01.419 Encounter for gynecological examination (general) (routine) without abnormal findings (principal) | CPT/HCPCS: 87624; 88142 ==

== ENCOUNTER → 2024-01-07 | Outpatient (CLI) | payer MEDICAID, SELFPAY ==
--- NOTE | 2024-01-07 11:03 | BI_ITS ---
MAMMOGRAPHY - BILATERAL SCREENING REASON FOR EXAM: Female, 63 years old. Routine annual screening examination. PERTINENT HISTORY: Mother with breast cancer. Aunt with breast cancer. Remote right stereotactic breast biopsy and left ultrasound-guided breast biopsy. TECHNIQUE: Digital bilateral breast kelvin (3D mammographic acquisition) in the CC and MLO projections. 2-D mediolateral oblique (MLO) and craniocaudad (CC) views of both breasts were obtained. CAD: Full Field Digital Mammography with Computer Added Detection was performed. COMPARISON: Comparison is made with prior study dated December 20, 2022 and December 19, 2021. FINDINGS: Breast Composition: The breasts are heterogeneously dense, which may obscure small masses. There are no dominant masses or suspicious calcifications. A tissue clip marker is seen in the upper central portion of the left breast. Stable small benign-appearing bilateral axillary lymph nodes. No other significant abnormalities are identified. There has been no significant change since the prior study. BI/SCRN MAMM (CAD)W/KELVIN BILAT IMPRESSION: Stable bilateral screening mammogram. Yearly follow-up mammogram recommended. (A) ASSESSMENT CATEGORY: BIRADS Category 2: Benign. A letter regarding these results will be sent to the patient by the facility within 30 days. Approximately 10% of breast cancers are not detected by mammography. A normal mammogram should not delay biopsy of a clinically suspicious abnormality. [id number] Electronically Signed: Chriss Horan MD at 11:48 EDT ,
[2024-01-07 11:41] LABS: Anion Gap 5 (5-15); BUN 15 mg/dL (7-18); BUN/Creat Ratio 19.5 RATIO (10-20); Calcium,Total 9.1 mg/dL (8.5-10.1); Chloride 110 mmol/L (98-107); Creatinine, Serum 0.77 mg/dL (0.55-1.02); EST Glomerular Filtration Rate 80 mL/min (>60); Est Glom Filt Rate - Afr Amer 97 mL/min (>60); Glucose 106 mg/dL (74-106); Sodium Level 141 mmol/L (136-145)
[2024-01-07 20:41] LABS: T4 Free Direct 1.12 ng/dL (0.76-1.46)
== END | disposition home or self-care (01) ==
PROVIDERS: PCP Family Medicine; Referring Provider Internal Medicine Endocrinology, Diabetes & Metabolism; Visit Provider Family Medicine
DX: Z12.31 Encounter for screening mammogram for malignant neoplasm of breast (principal); E03.9 Hypothyroidism, unspecified; Z85.850 Personal history of malignant neoplasm of thyroid; I10 Essential (primary) hypertension
CPT/HCPCS: 36415; 77063; 77067; 80048; 84439; 84443

== ENCOUNTER → 2024-02-18 | Outpatient (CLI) | payer MEDICAID, SELFPAY ==
[2024-02-24 11:08] LABS: HPV APTIMA, High Risk Negative (Negative)
== END | disposition home or self-care (01) ==
LOC: LABSPEC 09:07
PROVIDERS: PCP Family Medicine; Referring Provider Family Medicine; Visit Provider Family Medicine
DX: R87.619 Unspecified abnormal cytological findings in specimens from cervix uteri (principal)
CPT/HCPCS: 87624; 88142

== ENCOUNTER → 2024-12-04 | Outpatient (CLI) | payer MEDICARE, SELFPAY ==
[2024-12-04 14:38] LABS: AST(SGOT) 20 U/L (<=31); Alanine Aminotransfer ALT/SGPT 14 U/L (<=34); Albumin, Serum 4.4 g/dL (3.4-4.8); Alkaline Phosphatase 67 U/L (35-104); Anion Gap 13 (5-15); BUN 14 mg/dL (4-19); BUN/Creat Ratio 18.8 RATIO (10-20); Calcium,Total 9.4 mg/dL (7.6-11.0); Carbon Dioxide 21.3 mmol/L (21.0-32.0); Chloride 106 mmol/L (98-108); Globulin 2.9 g/dL (2.2-4.2); Glucose 99 mg/dL (70-99); Potassium 3.9 mmol/L (3.3-5.1)
== END | disposition home or self-care (01) ==
LOC: LAB 12:21
PROVIDERS: PCP Family Medicine; Referring Provider Family Medicine; Visit Provider Family Medicine
DX: E03.9 Hypothyroidism, unspecified (principal)
CPT/HCPCS: 36415; 80053; 84443

== ENCOUNTER → 2025-01-08 | Outpatient (CLI) | payer MEDICARE, SELFPAY ==
--- NOTE | 2025-01-08 08:30 | BI_ITS ---
EXAM: SCRN MAMM (CAD)W/KELVIN BILAT DATE: 01/08/2025 CLINICAL HISTORY: F, Age 64 y/o , SCREENING FOR BREAST CANCER TECHNIQUE: SCRN MAMM (CAD)W/KELVIN BILAT COMPARISON: Prior exam(s) dated 01/07/2024, 12/20/2022, 12/19/2021. FINDINGS: TISSUE DENSITY: The breasts are heterogeneously dense, which may obscure small masses. The mammogram demonstrates that the patient has dense breasts. Supplemental screening with whole breast ultrasound or MRI may be considered for further evaluation. Bilateral Breast Mammographic Findings: No significant masses, calcifications or other abnormalities are identified. BI/SCRN MAMM (CAD)W/KELVIN BILAT IMPRESSION: There is no mammographic evidence of malignancy. OVERALL FINAL ASSESSMENT BI-RADS 1: NEGATIVE. RECOMMENDATION: Routine annual follow-up in 1 Year A letter with findings and recommendations will be mailed to the patient. Reading Location: [id number]
== END | disposition home or self-care (01) ==
LOC: OPBI 08:20
PROVIDERS: PCP Family Medicine; Referring Provider Nurse Practitioner Family; Visit Provider Nurse Practitioner Family
DX: Z12.31 Encounter for screening mammogram for malignant neoplasm of breast (principal)
CPT/HCPCS: 77063; 77067